=== PATIENT | female | born 1985 | race Caucasian/White ===

== ENCOUNTER 2016-11-11 12:31 | Emergency (ER) | payer MEDICARE, OTHER | END 2016-11-11 12:57 | disposition home or self-care (01) | LOC: ED 12:31 | DX: Z53.21 Procedure and treatment not carried out due to patient leaving prior to being seen by health care provider (principal) ==

== ENCOUNTER 2016-11-11 18:50 | Emergency (ER) | payer MEDICARE, OTHER | END 2016-11-11 20:40 | disposition home or self-care (01) | LOC: ED 18:50 | DX: B08.8 Other specified viral infections characterized by skin and mucous membrane lesions (principal); G40.909 Epilepsy, unspecified, not intractable, without status epilepticus; E11.9 Type 2 diabetes mellitus without complications; F17.210 Nicotine dependence, cigarettes, uncomplicated; N18.9 Chronic kidney disease, unspecified; G47.30 Sleep apnea, unspecified; Z79.899 Other long term (current) drug therapy; Z79.4 Long term (current) use of insulin; Z88.5 Allergy status to narcotic agent; Z91.018 Allergy to other foods ==